=== PATIENT | female | born 2005 | race Caucasian/White ===

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

== ENCOUNTER 2024-01-17 18:33 | Emergency (ER) | payer SELFPAY ==
[2024-01-17 18:34] VITALS: BP 111/86; PULSE 95; RESP 17; TEMP 36.1; O2SAT 100; BMI 19.5
--- NOTE | 2024-01-17 20:03 | ED.RN ---
Pt states she needs to leave for work. LWBS @ 2003.
== END 2024-01-17 20:03 | disposition left against medical advice (07) ==
LOC: ED 20:12
PROVIDERS: PCP Pediatrics
DX: Z53.21 Procedure and treatment not carried out due to patient leaving prior to being seen by health care provider (principal)

== ENCOUNTER 2024-06-02 08:40 | Outpatient (CLI) | payer BC, SELFPAY ==
[2024-06-02 08:59] VITALS: BP 118/73; PULSE 82; RESP 16; TEMP 36.7; O2SAT 96
[2024-06-02 09:00] VITALS: PULSE 81; O2SAT 94
[2024-06-02 09:02] VITALS: BMI 23.6
[2024-06-02 09:25] LABS: Absolute Lymphocyte Count 1.31 X10^3/uL (0.83-4.51); Absolute Neutrophil Count 5.7 X10^3/uL (2.0-7.7); Basophil# 0.01 X10^3/uL; Basophil% 0.1 % (0-1); Eosinophil# 0.06 X10^3/uL; Eosinophils% 0.8 % (0-5); Hemoglobin 12.1 g/dL (12.0-15.0); Lymphocyte # 1.31 X10^3/ul (0.83-4.51); Lymphocyte % 17.4 % (19-41); Mean Corp Hgb Conc 34.6 g/dL (32-36); Mean Corpuscular Hgb 27.3 pg (27.0-32.0); Mean Platelet Vol. 8.1 fl (6.2-12.0); Monocyte# 0.43 X10^3/uL; Monocyte% 5.7 % (0-10); NRBC Flagged by Analyzer 0 % (0-5); Neutrophil # 5.69 X10^3/uL (2.7-7.7); Neutrophil % 75.5 % (47-70); Platelet Count 125 K/mm3 (150-450); RBC Distribution Width CV 13.6 % (11.6-14.6); RBC Distribution Width SD 38.4 fl (35.1-43.9); Red Blood Count 4.43 M/mm3 (4.2-5.4); White Blood Count 7.5 K/mm3 (4.4-11.0)
[2024-06-02 09:51] LABS: Prothrombin Time (Protime)PT. 12.9 SECONDS (11.7-14.9)
[2024-06-02 09:52] LABS: Fibrinogen 311 mg/dl (203-444); Partial Thromboplast Time 29.7 Seconds (24.1-36.2)
== END 2024-06-02 11:15 | disposition home or self-care (01) ==
LOC: WPOUT 08:42 → WP 08:42
PROVIDERS: PCP Pediatrics; Referring Provider Advanced Practice Midwife; Visit Provider Advanced Practice Midwife
DX: O46.92 Antepartum hemorrhage, unspecified, second trimester (principal); Z3A.24 24 weeks gestation of pregnancy
CPT/HCPCS: 36415; 59025; 59050; 85025; 85384; 85610; 85730; 99221; G0378

== ENCOUNTER 2024-08-06 | Outpatient (CLI) | payer BC, SELFPAY ==
[2024-08-06 00:05] VITALS: BMI 25.2
[2024-08-06 00:14] VITALS: BP 118/80; PULSE 98; RESP 18; TEMP 36.9
[2024-08-06 00:26] LABS: Color, Urine Yellow (Yellow); Glucose, Dipstick Normal (Normal); Ketone-Dipstick Negative (Negative); Leukocyte Esterase-Dipstick 500 /ul (Negative); Nitrite-Dipstick Negative (Negative); Occult Blood-Urine 25 /ul (Negative); Protein-Dipstick 15 mg/dl (Negative); Urine Bilirubin Dipstick Negative (Negative); Urine Clarity Cloudy (Clear); Urine Urobilinogen Normal (Normal); Urine pH 6.5 (5.0 - 8.0)
[2024-08-06] MEDS: Nitrofurantoin Macrocrystals 100 MG Capsule PO (01:50)
--- NOTE | 2024-08-06 04:04 | OB.TRI.NOTE ---
HPI - General HPI Narrative RONALD BUSH, is a 19 F who presents at 33.5 weeks gestation for lower abdominal and back pain. Maternal Data Information ROMAINE Calculator Estimated Delivery Date Method Current WG Current Estimate 09/19/24 Manual 33w 5d PFSH [facility] Medical History (Updated 08/06/24 @ 04:06 by Kristina Dale CNM) Physical exam, pre-employment Chlamydia infection affecting Depression Anxiety Asthma Home Medications ?Medication ?Instructions ?Recorded ?Last Taken ?Type vits,calcium no.78-iron 1 tablet PO DAILY 10/28/20 08/05/24 History fumarate-folic acid 29 mg-1 mg tablet Allergy/AdvReac Type Severity Reaction Status Date / Time Fish Containing Products Allergy Severe Anaphylaxis Verified 08/06/24 00:27 shellfish derived Allergy Severe Anaphylaxis Verified 08/06/24 00:27 Surgical History History of surgery Social History Smoking Status: Never smoker History Elective abortions Hx Para 0 Spontaneous abortions Hx # Term Pregnancies Ectopic pregnancies Hx # Pregnancies Multiple births # of living children ROS Eyes Eyes: Denies blurry vision Cardiovascular Cardiovascular: Reports none; Denies chest pain at rest, chest pain with activity or dizziness Respiratory/Chest Respiratory/Chest: Denies cough or dyspnea Gastrointestinal Gastrointestinal: Reports none and other; Denies diarrhea or vomiting Genitourinary Genitourinary: Denies dysuria Musculoskeletal Musculoskeletal: Reports none Integumentary Integumentary: Reports none; Denies rash Neurologic Neurologic: Denies dizziness, headache(s) or other visual disturbances Psychiatric Psychiatric: Reports none Physical Exam Const alert and no apparent distress General Appearance: cooperative Orientation / Consciousness: awake Exam Limitations: no limitations HEENT normocephalic Eyes General Eye: normal appearance of both eyes Neck full ROM Chest inspection of chest normal Resp normal respiratory effort and normal air movement Effort and Inspection: symmetric chest movement Auscultation: clear to auscultation bilaterally Cardio regular rate GI soft to palpation, non-tender and non-distended Inspection: and other Back/Spine normal ROM Extremity full ROM, normal capillary refill and no calf tenderness Skin no rashes or lesions noted Neuro oriented x3 and CN's II-XII intact bilaterally Psych mental status grossly normal NST FHR Rate Baby A Baseline: 150 Variability:: Moderate Accelerations:: 10 x 10 Uterine Activity:: Irritability Assessment & Plan (1) 33 weeks gestation of : (2) Back pain affecting : (3) Abdominal cramping: PLAN: Plan Taking PO without difficulty Urine- positive- Start Macrobid 100 mg PO BID Send for culture CE Thick/ high D.C home with follow up in office this week
--- NOTE | 2024-08-06 04:13 | DCINST_ITS ---
Discharge Instructions Diet Discharge Diet: No restrictions DC O2, CPAP, BIPAP needs Home O2 Discharge instructions: No Follow Up Care Test Results: Test results from this visit will be discussed in further detail at your follow- up appointment, if applicable. Discharge Plan Admission Reason For Visit: R/O LABOR Attending Provider: Kristina Dale Primary Care Provider: Rosalina Payne Discharge Date/Time: 08/06/24 02:00 Instructions Patient Instructions: Kick Counts, ED False Labor, OB Triage: Return to Hospital or Notify Physician if you Experience: Additional Instructions / Restrictions: Keep next OB appointment. Discharge Orders/Prescriptions Prescriptions: New nitrofurantoin monohyd/m-cryst [Macrobid] 100 mg capsule 100 mg PO BID Qty: 14 0RF Rx Instructions: Take medication with food to help with GI upset Finish all of medication No Action vit,[id number] 1 TABLET tablet 1 tablet PO DAILY Referrals / Follow Up: Rosalina Payne MD [Primary Care Provider] - Kristina Dale CNM [Med Staff - Adv Practice Prof] - Disposition Patient Disposition: Home, Self Care
== END 2024-08-06 02:00 | disposition home or self-care (01) ==
LOC: WPOUT 00:02 → WP 00:03
PROVIDERS: PCP Pediatrics; Referring Provider Advanced Practice Midwife; Visit Provider Advanced Practice Midwife
DX: O99.891 Other specified diseases and conditions complicating pregnancy (principal); R10.30 Lower abdominal pain, unspecified; Z3A.33 33 weeks gestation of pregnancy
CPT/HCPCS: 59025; 59050; 81002; 87086; 99221; G0378

== ENCOUNTER 2024-08-20 04:01 | Outpatient (CLI) | payer BC, SELFPAY ==
[2024-08-20 04:13] VITALS: BMI 24.7
[2024-08-20 04:18] VITALS: BP 113/73; PULSE 97; RESP 16; TEMP 36.4; O2SAT 97
[2024-08-20 08:07] VITALS: BP 114/77; PULSE 96; RESP 16; TEMP 36.5
--- NOTE | 2024-08-20 18:38 | OB.TRI.HP_ITS ---
HPI - General HPI Narrative RONALD BUSH, is a 19 F who presents at 35w5d with complaint of contractions. No leakage of fluid or vaginal bleeding, good movement. Maternal Data Information ROMAINE Calculator Estimated Delivery Date Method Current WG Current Estimate 09/19/24 Manual 35w 5d PFSH [facility] Medical History (Updated 08/20/24 @ 18:40 by Liza Schmitt CNM) Physical exam, pre-employment Chlamydia infection affecting Depression Anxiety Asthma Home Medications ?Medication ?Instructions ?Recorded ?Last Taken ?Type vits,calcium no.78-iron 1 tablet PO DAILY 10/28/20 08/20/24 04:00 History fumarate-folic acid 29 mg-1 mg tablet Allergy/AdvReac Type Severity Reaction Status Date / Time Fish Containing Products Allergy Severe Anaphylaxis Verified 08/20/24 04:12 shellfish derived Allergy Severe Anaphylaxis Verified 08/20/24 04:12 Surgical History History of surgery Social History Smoking Status: Never smoker History Elective abortions Hx Para 0 Spontaneous abortions Hx # Term Pregnancies Ectopic pregnancies Hx # Pregnancies Multiple births # of living children Physical Exam Const alert and oriented x3 General Appearance: cooperative Orientation / Consciousness: awake, oriented to person, oriented to place and oriented to time Exam Limitations: no limitations HEENT normocephalic Head and Scalp: normal to inspection, normocephalic and atraumatic Face and Sinus: normal facial exam Eyes General Eye: normal appearance of both eyes Neck full ROM Chest Chest: symmetrical chest wall rise Neuro oriented x3 and moves all extremities Sensorium / Orientation: awake, alert and oriented to person NST FHR Rate Baby A Baseline: 125 Variability:: Moderate Accelerations:: 15 x 15 Decelerations:: None NST Reactive:: Yes Uterine Activity:: Irregular, mild Assessment & Plan (1) 35 weeks gestation of : (2) False labor: PLAN: Plan 1) False labor 2) D/C home
== END 2024-08-20 11:53 | disposition home or self-care (01) ==
LOC: WPOUT 04:05 → WP 04:06
PROVIDERS: PCP Pediatrics; Visit Provider Obstetrics & Gynecology
DX: O47.03 False labor before 37 completed weeks of gestation, third trimester (principal); Z3A.35 35 weeks gestation of pregnancy
CPT/HCPCS: 59025; 59050; 99221; G0378

== ENCOUNTER 2024-08-22 08:43 | Inpatient (IN) | payer BC, SELFPAY ==
[2024-08-22] VITALS (33 sets, daily range): BP systolic 91–128; BP diastolic 45–89; PULSE 73–150; RESP 16; TEMP 36.7–37.1; O2SAT 96–100; BMI 24.0
--- NOTE | 2024-08-22 08:53 | PCM.HP.OB ---
HPI - General General Date of Admission: 08/22/24 HPI Narrative RONALD BUSH, is a 19 F @ 36 weeks who presents with SROM in early labor Maternal Data Information ROMAINE Calculator Estimated Delivery Date Method Current WG Current Estimate 09/19/24 Manual 36w 0d Final ROMAINE: 09/19/24 Final ROMAINE Source: US <20 weeks PFSH PFS Medical History Physical exam, pre-employment Chlamydia infection affecting Depression Anxiety Asthma Home Medications ?Medication ?Instructions ?Recorded ?Last Taken ?Type vits,calcium no.78-iron 1 tablet PO DAILY 10/28/20 08/20/24 04:00 History fumarate-folic acid 29 mg-1 mg tablet Allergy/AdvReac Type Severity Reaction Status Date / Time Fish Containing Products Allergy Severe Anaphylaxis Verified 08/22/24 08:35 shellfish derived Allergy Severe Anaphylaxis Verified 08/22/24 08:35 Surgical History History of surgery Social History Smoking Status: Never smoker History Elective abortions Hx Para 0 Spontaneous abortions Hx # Term Pregnancies Ectopic pregnancies Hx # Pregnancies Multiple births # of living children NST FHR Rate Baby A Baseline: 140 Variability:: Moderate Accelerations:: 15 x 15 Decelerations:: None NST Reactive:: Yes FHR Category:: Category I Uterine Activity:: irregular Physical Exam Narrative VE 3/70/-2 grossly ruptured Const alert and oriented x3 General Appearance: cooperative HEENT normocephalic GI GI Narrative: Gravid, non tender to palpation. OB / External & Speculum: external exam normal Extremity normal to inspection Skin no rashes or lesions noted Neuro oriented x3 and CN's II-XII intact bilaterally Psych Appearance: grossly normal Labs Labs Labs: Blood Type O POSITIVE Antibody Screen NEGATIVE Hct 34.8 % (37-47) L Hgb 11.7 g/dL (12.0-15.0) L Obstetrics Ultrasound Syphilis Total Ab Non-reactive Rubella IgG Antibody Reactive (Nonreactive) Hep Bs Antigen Non-Reactive (Nonreactive) Hepatitis C Antibody Non-Reactive (Nonreactive) Chlamydia DNA (AILYN) Positive (Negative) H N.gonorrhoeae DNA (AILYN) Negative (Negative) HIV 1&2 Antibody Non-Reactive (Nonreactive) Glucose 1 Hr 50 gm 101 mg/dL (70-140) Group B Strep DNA Negative (Negative) Assessment & Plan (1) premature rupture of membranes: (2) Gestational thrombocytopenia: (3) Chlamydia infection affecting in first trimester: (4) 36 weeks gestation of : PLAN: Plan Admit to L&D Montior FHR/TOCO Epidural if requested for pain Monitor VS Anticipate rapid gbs and gonorrhea/chlamydia
[2024-08-22 09:09] LABS: ROM Internal Control Test YES-OK TO RESULT pt. (Internal QC)
[2024-08-22 09:10] LABS: ROM Patient Test POSITIVE (Negative)
[2024-08-22 09:11] LABS: Record Kit Lot#, ROM+ K2451
[2024-08-22] MEDS: Lactated Ringers 1,000 ML 99 ML IV (09:50)
[2024-08-22 10:08] LABS: Absolute Lymphocyte Count 1.57 X10^3/uL (0.83-4.51); Absolute Neutrophil Count 8.2 X10^3/uL (2.0-7.7); Basophil# 0.03 X10^3/uL; Basophil% 0.3 % (0-1); Eosinophil# 0.02 X10^3/uL; Eosinophils% 0.2 % (0-5); Hematocrit 34.8 % (37-47); Hemoglobin 11.7 g/dL (12.0-15.0); Lymphocyte # 1.57 X10^3/ul (0.83-4.51); Lymphocyte % 15.1 % (19-41); Mean Corp Hgb Conc 33.6 g/dL (32-36); Mean Corpuscular Hgb 25.1 pg (27.0-32.0); Mean Corpuscular Volume 74.5 fL (81-99); Monocyte# 0.53 X10^3/uL; Monocyte% 5.1 % (0-10); NRBC Flagged by Analyzer 0 % (0-5); Neutrophil # 8.16 X10^3/uL (2.7-7.7); Neutrophil % 78.7 % (47-70); Platelet Count 116 K/mm3 (150-450); RBC Distribution Width CV 13.4 % (11.6-14.6); RBC Distribution Width SD 35.5 fl (35.1-43.9); Red Blood Count 4.67 M/mm3 (4.2-5.4); White Blood Count 10.4 K/mm3 (4.4-11.0)
[2024-08-22] MEDS: Lactated Ringers 1,000 ML 200 ML IV (10:52)
[2024-08-22 11:04] LABS: Syphilis Antibodies Non-reactive
[2024-08-22] MEDS: fentaNYL-bupivacaine (epidural) 100 ML BAG EPIDURAL (11:28)
[2024-08-22] MEDS: Penicillin G Pot 5,000,000 UNITS in 0.9% Normal Saline (100mL MB+) 100 ML 150 UNITS IV (12:25)
--- NOTE | 2024-08-22 12:36 | PCM.PN.BLA ---
Progress Note GBS + resulted- will start PCN. VE: /-3 asynclitic - will do side lying release and start pitocin. Epidural in place. FHR tracing reviewed- Cat 1 reactive
--- NOTE | 2024-08-22 13:54 | OB.VAGDELI_ITS ---
Maternal Data Information ROMAINE Calculator Estimated Delivery Date Method Current Current Estimate 09/19/24 Manual 36w 0d Vaginal Delivery Maternal Presentation Maternal Presentation: Active Labor and Spontaneous Rupture of Membranes Maternal Presentation: 36 weeks - Srom Vaginal Delivery Information Procedure Performed: Spontaneous Vaginal Delivery Surgeon/Practitioner: Dianelys Ruiz Date of Procedure: 08/22/24 Pre-Procedure Diagnosis: 36 WEEKS, srom, pprom, gest thrombocytopenia, gbs+, Post-Procedure Diagnosis: same, live female infant Type of anesthesia: Epidural Estimated Blood Loss: 50 Time of Delivery: 13:40 Findings Description of procedure: Patient progressed to fully dilated. Good maternal pushing efforts delivered the head followed by the anterior shoulder and spontaneously posterior shoulder. Followed by the rest the infant's body. The was placed on the mother's chest for immediate skin to skin. Infant was vigorous at time of delivery. Delayed cord clamping was performed. Nursery team was available for delivery. Pitocin was started and placenta was delivered intact without complication. Cord blood was collected. No lacerations were appreciated. Fundus was firm. lochia normal. Presentation: Vertex Amniotic Membrane Rupture Type: Spontaneous Amniotic Fluid Description: Clear Placental Delivery Description: Spontaneous Placenta Disposition: [facility] Specimen collected: No Cord Vessel Description: 3 Vessels Cord Entanglement: None A Gender: Female (1 minute): 9 (5 minute): 9 Delayed Cord Clamping: Yes Sales And Marketing Vice President cash analyst: Yes A&P Mechanic: Silvio Osullivan ms3 Tasks completed by scheduling assistant: Other (delivery of and placenta) Additional entry level administrative assistant?: No Post Vaginal Deli Medications given after delivery: IV Pitocin Episiotomy Description: None Laceration: None Complication Complications: No
[2024-08-23 00:05] VITALS: BP 108/67; PULSE 84; RESP 16; TEMP 36.8; O2SAT 97
[2024-08-23 03:36] VITALS: BP 111/81; PULSE 83; RESP 16; TEMP 36.5; O2SAT 97
[2024-08-23] MEDS: Acetaminophen 500 MG Tablet PO (05:40)
--- NOTE | 2024-08-23 08:21 | PCM.PROGNOTE ---
Subjective Subjective patient seen at bedside, doing well. Patient reports good pain control. lochia mild. pt would like mirena but was not placed at time of delivery so discussion with patient and patient would like to get Depo injection prior to dc home and will get mirena at 6 week pp check. Objective Data Objective Data Vital Signs: Vital Signs Temp Pulse Resp BP Pulse Ox O2 Del Method 97.7 F L 83 16 111/81 H 97 Room Air 08/23/24 03:36 08/23/24 03:36 08/23/24 03:36 08/23/24 03:36 08/23/24 03:36 08/23/24 03:36 Oxygen Delivery Method Room Air Weight: 73.482 kg Body Mass Index (BMI) 24.0 Intake & Output: Intake and Output for Last 24 Hours 08/21/24 08/22/24 08/23/24 23:59 23:59 23:59 Intake Total 207.3 / 207.3 Output Total 250 / 250 Balance -42.7 / -42.7 Lab / Micro Data 08/22/24 09:40 Labs: Laboratory Results - last 24 hr 08/22/24 08:30: Vag Amniotic Fld Detect POSITIVE H 08/22/24 09:40: WBC 10.4, RBC 4.67, Hgb 11.7 L, Hct 34.8 L, MCV 74.5 L, MCH 25.1 L, MCHC 33.6, RDW Std Deviation 35.5, RDW Coeff of Yahaira 13.4, Plt Count 116 L, MPV 8.0, Immature Gran % (Auto) 0.600, Neut % (Auto) 78.7 H, Lymph % (Auto) 15.1 L, Esmeralda % (Auto) 5.1, Eos % (Auto) 0.2, Baso % (Auto) 0.3, Absolute Neuts (auto) 8.2 H, Absolute Lymphs (auto) 1.57, Nucleated RBC % 0, Syphilis Total Ab Non-reactive, Blood Type O POSITIVE, Antibody Screen NEGATIVE Micro: Microbiology 08/22/24 13:05 Urine, Clean Catch Chlamydia/Neisseria (PCR) - Final 08/22/24 09:40 Genital vaginal Group B Streptococcus (PCR) - Final Streptococcus Group B Physical Exam Const alert and oriented x3 General Appearance: cooperative HEENT normocephalic Neck General: normal visual inspection GI soft to palpation and non-distended GI Narrative: Fundus firm Extremity normal to inspection and no calf tenderness Skin no rashes or lesions noted Neuro oriented x3 and CN's II-XII intact bilaterally Psych mental status grossly normal Assessment & Plan Assessment/Plan (1) delivery: (2) Vaginal delivery: PLAN: Plan PPD# 1 , Doing well Routine care pain mgmt ambulation Depo provera ordered
[2024-08-23 09:00] VITALS: BP 107/72; PULSE 75; RESP 16; TEMP 36.5; O2SAT 98
[2024-08-23 13:00] VITALS: BP 113/76; PULSE 62; RESP 16; TEMP 36.1; O2SAT 100
--- NOTE | 2024-08-23 14:04 | NURSING ---
All documentation by student nurse Milagros Cisse reviewed by esl instructor Amelia MACHADON, RN.
[2024-08-23 17:00] VITALS: BP 127/80; PULSE 60; RESP 16; TEMP 36.2; O2SAT 100
[2024-08-23 21:18] VITALS: BP 108/72; PULSE 69; RESP 16; TEMP 36.8; O2SAT 97
[2024-08-24 02:00] VITALS: BP 114/84; PULSE 79; RESP 16; TEMP 36.3; O2SAT 100
--- NOTE | 2024-08-24 06:57 | DS.PCM_ITS ---
Providers Date of Admission: 08/22/24 Primary Care Physician: Dr. Rosalina Payne MD Reason For Visit: LABOR & DELIVERY Diagnosis Discharge Diagnosis (1) delivery: Status: Acute Code(s): O60.10X0 - labor with delivery, unspecified trimester, not applicable or unspecified Plan PPD 2 Desires d/c home Depo Provera injection prior to discharge- order placed Medications at Discharge Home Medications vits,calcium no.78-iron fumarate-folic acid 29 mg-1 mg tablet 1 tablet PO DAILY 10/28/20 acetaminophen 500 mg tablet 1,000 mg (2 x 500 mg) PO Q6H PRN PRN Pain 1-10 Or Fever #0 tabs 08/24/24 ibuprofen 600 mg tablet 600 mg PO Q6H PRN PRN Pain Score 1-10 #0 tabs 08/24/24 Hospital Course Operations None Procedures None Summary of Care Provided Minutes Spent on Discharge: 15 Hospital Course: Patient had vaginal delivery. Hospital course was uneventful. Physical Exam Narrative Patient seen at bedside. Denies pain. Ambulating and voiding without difficulty. Lochia decreased. Desires discharge home today. Const alert and oriented x3 General Appearance: Negative for in distress HEENT normocephalic Eyes General Eye: normal appearance of both eyes Neck General: normal visual inspection Chest Chest: symmetrical chest wall rise Resp normal respiratory effort and normal air movement Effort and Inspection: symmetric chest movement; Negative for tachypneic Auscultation: clear to auscultation bilaterally Cardio regular rate and regular rhythm Peripheral Pulses: pulses 2+ throughout GI normal to inspection, nondistended, normoactive bowel sounds Narrative: Ice to perineum OB / External & Speculum: vaginal bleeding and other Lochia decreasing Uterus Palpation: uterus fundus firm (Below U) Extremity normal to inspection, full ROM and normal capillary refill Skin no rashes or lesions noted Neuro oriented x3, CN's II-XII intact bilaterally and gait normal Psych mental status grossly normal, thought process normal and activity/motor behavior normal Weight / BMI Weight Weight: 162 lb Body Mass Index (BMI) 24.0 ABG / Lab / Microbiology Data 08/22/24 09:40 Microbiology: Microbiology 08/22/24 13:05 Urine, Clean Catch Chlamydia/Neisseria (PCR) - Final 08/22/24 09:40 Genital vaginal Group B Streptococcus (PCR) - Final Streptococcus Group B D/C Instructions Discharge Diet: No restrictions Discharge Activity: Return to Normal Activity, No Restrictions, May Drive, May Shower and May Take a Tub Bath (Warm water only. No bath salts, soaps, bubbles) May resume sexual activity in: 6-8 weeks Weight Bearing Status: Weight bearing as tolerated Call your doctor if you observe: Fever of 101 or Higher, Inability to urinate, Using more than 1 pad per hour, Shortness of breath, Dizziness, Chest pain, Calf discomfort and Uncontrolled pain DC O2, CPAP, BIPAP Needs Home O2 Discharge instructions: No Please Follow Up With: [facility] RANDALL When: 2 weeks in office or virtual Meaningful Use Info Meaningful Use Meaningful Use Diagnoses (Choose all that apply): None applicable Ischemic Stroke Statin Dosing Therapy Reference: STATIN DOSE THERAPY REFERENCE: * Patients > 75 years receive moderate or high dose statin therapy. * Patients 75 years or YOUNGER should receive HIGH intensity statin dose unless contraindicated. You will be required to document reason for non-treatment if statin daily dose does not meet guidelines. HIGH DOSE STATIN THERAPY DAILY Atorvastatin > than or = to 40 mg Rosuvastatin > than or = to 20 mg Amlodipine + Atorvastatin > than or = to 2.5/40 mg Ezetimibe + Simvastatin 10/80 mg Simvastatin 80mg Discharge Plan Admission Admit Date/Time: 08/22/24 08:43 Primary Reason for Your Visit: Labor and Delivery Attending Provider: Dianelys Ruiz Primary Care Provider: Rosalina Payne Discharge Orders/Prescriptions Prescriptions: New acetaminophen 500 mg Tablet 1,000 mg PO Q6H PRN PRN (Reason: Pain 1-10 Or Fever) Qty: 0 0RF ibuprofen 600 mg Tablet 600 mg PO Q6H PRN PRN (Reason: Pain Score 1-10) Qty: 0 0RF Continued vit,[id number] 1 TABLET tablet 1 tablet PO DAILY Referrals / Follow Up: Rosalina Payne MD [Primary Care Provider] - Disposition Disposition (needs filled in before D/C Order can be placed): Home, Self Care
[2024-08-24 09:00] VITALS: BP 115/86; PULSE 80; RESP 16; TEMP 36.7; O2SAT 100
[2024-08-24] MEDS: MedroxyPROGESTERone 150 MG/ML Syringe IM (09:29)
--- NOTE | 2024-08-24 12:18 | CASEMGMT ---
Social Work Brief Assessment - Labor and Delivery Unit Patient Address: [address] [place] [id number] Phone number: [phone] Date and Time of Referral:? 08/24/24924 Referred By: Dr. Lyle Handy Date and time of intervention:? 08/24/24, 1099 Reason for Referral:?? anxiety and depression Informant:?? Medical record and mother of baby (MOB) History:? Sw completed chart review and acknowledges social work consult due to maternal mental health history. Sw presented to bedside and introduced self to mother of baby (MOB- Marquez) and father of baby (FOB- Terry). Maternal sister also present, Daya. Sw asked if it was okay to complete assessment with her sister present, MOB agreed. Sw explained reason for sw involvement and completed psychosocial assessment. MOB present following vaginal delivery of baby at 36 weeks gestation on 08/22/24. Baby girl, named Bobby Randle, was born weighing 5lb 6oz with apgars of 9 and 9 at one and five minutes of life, respectfully. This is second baby for MOB. She reports to having a 3 year old boy at home named David. MOB states that she and NEHAL have only been together for 10 months after meeting each other through mutual friends. NEHAL- Maxwell Justen states that he has another child who turned one in April, his name is Roberth Martin. MOB rteports that she is currently living with her mom, dad and her 3 year old son. NEHAL is currently residing with his mom and his siblings. Both parents deny any problems or concerns with their housing. FOSree plans to be with MOB throughout the week to help with baby care. 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 NEHAL states that he is also employed at [employer] in [place]. MOB states that she has obtained all necessary baby items, including: car seat, safe sleep space, clothes, diapers and wipes. Jazz asked if MOB is connected to [facility], but she denies, stating that the only resource she is connected to is Medicaid as a secondary insurance. MOB states that she has been diagnosed with anxiety and depression and is not prescribed anything to help her manage her symptoms. MOB states that her mental health does not impact her daily ability to function, but does flare up from time to time. MOB states that when she starts to feel anxious or overwhelmed she talks to her mom or her sister who are her biggest supports. MOB able to recognize that she did experience some baby blues following the delivery of her son when she was only 16. MOB states during that time she was anxious and overwhelmed, but also had very little support and did not know what she was doing as a first time teen mom. MOB states that this time she feels more confident in herself as a mom and knows what to expect going into this period. FOB states that if MOB were to struggle with her mental health he would be able to recognize that and would know how to help and support her. MOB states at this time she feels really happy and excited that baby is here. Assessment:? MOB observed sitting on bed comfortably and FOB sitting on couch looking at his phone. MOB's sister also at bedside, sitting in chair and holding . MOB and sister both active in completion of assessment. Both individuals were talkative and open. FOB would smile and participate when questions were directly asked towards him. FOB appears as though he will be a support, but also he and MOB have not been together for a long period of time and are essentially still getting to know one another and now in the capacity of being parents together. While talking, maternal grandma and MOB's 3 year old son presented to room. The family appeared to be happy together and in good spirits. MOB talkative and open with sw throughout assessment. Plan:??? MOB and baby to be discharged when medically ready. Literature provided to MOB regarding: safe sleep, shaken baby prevention, Help Me Grow, signs and symptoms of baby blues and depression/ anxiety and a list of county resources that are available to MOB. No further needs requested or indicated. Emely Seymour, AIRPLANE FLIGHT ATTENDANT SUPERVISOR, SEASONAL PACKAGE HANDLER
--- NOTE | 2024-08-28 18:34 | NURSING ---
Follow up phone call: Patient stated she is tired but overall feeling okay. Her vaginal bleeding has decreased with no S+s of pp complications but does know how to contact her provider if she were to have concerns. Patient reports is feeding well, she is bottle feeding but exclusively pumping. Her pump has stopped working and has ordered a Spectra, and was encouraged to reach out with questions if she had any when pump arrives.
== END 2024-08-24 11:50 | disposition home or self-care (01) | DRG 805 ==
LOC: WPOUT 08:53 → WP 19:23
PROVIDERS: Admitting Provider Obstetrics & Gynecology; PCP Pediatrics; Referring Provider Obstetrics & Gynecology; Visit Provider Obstetrics & Gynecology
DX: O42.913 Preterm premature rupture of membranes, unspecified as to length of time between rupture and onset of labor, third trimester (principal); Z37.0 Single live birth; O60.14X0 Preterm labor third trimester with preterm delivery third trimester, not applicable or unspecified; O99.12 Other diseases of the blood and blood-forming organs and certain disorders involving the immune mechanism complicating childbirth; D69.59 Other secondary thrombocytopenia; O99.824 Streptococcus B carrier state complicating childbirth; Z3A.36 36 weeks gestation of pregnancy
CPT/HCPCS: 59025; 59050; 84112; 85025; 86780; 86850; 86900; 86901; 87491; 87591; 87653; 99221; G0378